=== PATIENT | female | born 1950 ===

== ENCOUNTER 2020-05-11 07:00 | Inpatient (IN) | payer OTHER ==
[~2020-05-11] VITALS: Ht 12.7 cm; Wt 168.0 kg
[2020-05-11] MEDS ORDERED: ATACAND16 MG PO (12:18)
[2020-05-11] MEDS ORDERED: ZOLOFT50 MG PO ×2 (12:19→12:21)
[2020-05-11] MEDS ORDERED: FORTAMET500 MG PO (12:21)
[2020-05-11] MEDS ORDERED: IRON PO (12:22)
[2020-05-11] MEDS ORDERED: VITAMIN D31 ML PO (12:22)
[2020-05-11] MEDS ORDERED: ADULT LOW DOSE81 M1 PO (12:22)
[2020-05-11] MEDS ORDERED: FOLIC AC PO (12:23)
[2020-05-11] MEDS ORDERED: CLONAZEPAM0.5 MG PO (15:42)
[2020-05-11] MEDS ORDERED: NORVASC5 MG PO (15:42)
[2020-05-18] MEDS ORDERED: IRON236 MG (14:59)
[2020-05-18] MEDS ORDERED: FOLIC ACID0.8 M1 (14:59)
[2020-05-20] MEDS ORDERED: BACTRIM DS TAB1 EACH PO (07:47)
[2020-05-20] MEDS ORDERED: INTEGRA PLUS C1 EACH PO (07:47)
[2020-05-20] MEDS ORDERED: XARELTO10 MG PO (07:47)
[2020-05-20] MEDS ORDERED: OXYC1TAB9 PO (07:47)
== END 2020-05-21 15:45 | DRG 470 ==
LOC: SURH 05-18 07:00 → O/R 05-18 07:37 → SURG 05-18 07:37 → SURH 05-18 08:30 → SURG 05-18 17:13
PROVIDERS: ADMIT Orthopaedic Surgery Sports Medicine; ATTEND Orthopaedic Surgery Sports Medicine
PROC: 0SRD0J9 Replacement of Left Knee Joint with Synthetic Substitute, Cemented, Open Approach (ICD-10-PCS; principal; 2020-05-18 08:30)
DX: M17.12 Unilateral primary osteoarthritis, left knee (principal); E11.9 Type 2 diabetes mellitus without complications; I10 Essential (primary) hypertension

== ENCOUNTER 2022-11-23 14:43 | Inpatient (IN) | payer OTHER ==
[~2022-11-23] VITALS: Ht 152.4 cm; Wt 77.1 kg
[~2022-11-23 14:43] MED LIST: ADULT LOW DOSE81 M1 PO; ATACAND16 MG PO; BACTRIM DS TAB1 EACH PO; CLONAZEPAM0.5 MG PO; FOLIC AC PO; FOLIC ACID0.8 M1; FORTAMET500 MG PO; INTEGRA PLUS C1 EACH PO; IRON PO; IRON236 MG; NORVASC5 MG PO; OXYC1TAB9 PO; VITAMIN D31 ML PO; XARELTO10 MG PO; ZOLOFT50 MG PO
[2022-11-24] MEDS ORDERED: LIPITOR20 MG PO (11:06)
[2022-11-24] MEDS ORDERED: FLONASE16 GM (11:07)
[2022-11-24] MEDS ORDERED: ZYRTEC10 M3 PO (11:08)
[2022-11-28] MEDS ORDERED: ATORVASTATIN CA20 MG (15:32)
[2022-11-28] MEDS ORDERED: DORZOLAMIDE HCL10 ML (15:32)
[2022-11-28] MEDS ORDERED: ST. JOSEPH ASPI81 M2 (15:32)
[2022-11-28] MEDS ORDERED: LATANOPROST2.5 ML (15:32)
[2022-11-28] MEDS ORDERED: GABAPENTIN300 M2 (15:32)
[2022-11-30] MEDS ORDERED: INTEGRA PLUS C1 EACH PO (08:18)
[2022-11-30] MEDS ORDERED: OXYC1TAB9 PO (08:18)
[2022-11-30] MEDS ORDERED: XARELTO10 MG PO (08:18)
[2022-11-30] MEDS ORDERED: BACTRIM DS TAB1 EACH PO (08:18)
== END 2022-11-30 19:45 | DRG 470 ==
LOC: SURG 11-28 07:00 → O/R 11-28 08:47 → SURH 11-28 21:35
PROVIDERS: ADMIT Orthopaedic Surgery Sports Medicine; ATTEND Orthopaedic Surgery Sports Medicine
PROC: 0SRC0J9 Replacement of Right Knee Joint with Synthetic Substitute, Cemented, Open Approach (ICD-10-PCS; principal; 2022-11-28 07:00)
DX: M17.11 Unilateral primary osteoarthritis, right knee (principal); I10 Essential (primary) hypertension; E11.9 Type 2 diabetes mellitus without complications; Z79.4 Long term (current) use of insulin; Z96.651 Presence of right artificial knee joint